=== PATIENT | male | born 1990 | race Hispanic/Latino ===

== ENCOUNTER 2018-07-25 21:21 | Emergency (ER) | payer SELFPAY ==
[~2018-07-25] VITALS: Ht 188 cm; Wt 91.0 kg
[2018-07-25 22:33] LABS: HEMATOCRIT 47.2 % (39.0-50.0); HEMOGLOBIN 16.3 g/dl (14.0-18.0); IMMATURE GRANULOCYTES 0.5 % (0.0-5.0); MEAN CELL VOLUME 88.9 fL CALC (80.0-100.0); MEAN CORPUSCULAR HGB 30.7 pG CALC (26.0-32.0); MEAN CORPUSCULAR HGB CONC 34.5 g/L CALC (32.0-36.0); NEUT# 6.01 thou/uL (1.82-7.42); RED BLOOD COUNT 5.31 mill/uL (4.70-6.10); RED CELL DISTRI WIDTH 12.7 % (11.5-15.5)
[2018-07-25 22:47] LABS: ALBUMIN 4.6 g/dL (3.2-5.0); ALKALINE PHOSPHATASE 61 u/l (38-126); ANION GAP 17 (6-22 (CALC)); BILIRUBIN, TOTAL 0.6 mg/dL (0.0-1.4); BUN 13 mg/dL (9-20); BUN/CREATININE RATIO 13 (12-20 (CALC)); CARBON DIOXIDE 24 mmol/l (22-30); CHLORIDE 106 mmol/l (95-108); CREATININE 0.9 mg/dL (0.7-1.3); GFR > 60 ML/MIN (>=60 (CALC)); GFR FOR AFR.AMER. > 60 ML/MIN (>=60 (CALC)); POTASSIUM 3.9 mmol/l (3.5-5.1); SODIUM 143 mmol/l (137-146); TOTAL PROTEIN 7.8 g/dL (6.3-8.2)
[2018-07-25 22:51] LABS: SGOT/AST 67 u/l (17-59)
[2018-07-26] LABS: URINE BILIRUBIN - DIPSTICK NEGATIVE (NEGATIVE); URINE BLOOD DIPSTICK NEGATIVE (NEGATIVE); URINE COLOR YELLOW; URINE GLUCOSE - DIPSTICK NEGATIVE (NEGATIVE); URINE KETONE TRACE mg/dL (NEGATIVE); URINE LEUK ESTERASE NEGATIVE (NEGATIVE); URINE NITRITE - DIPSTICK NEGATIVE (Negative); URINE PH 5.5 (4.5-8.0); URINE PROTEIN - DIPSTICK NEGATIVE (NEG-TRACE); URINE SPECIFIC GRAVITY >=1.030; URINE UROBILINOGEN - DIPSTICK 0.2 E.U./dL (0.2)
[2018-07-26 00:12] LABS: URINE CLARITY CLEAR
[2018-07-26] MEDS ORDERED: ALPRAZOLAM1 MG PO ×3 (01:16→01:19)
[2018-07-26] MEDS ORDERED: SERTRALINE HCL25 MG PO (01:21)
[2018-07-26] MEDS ORDERED: LEVOTHYROXIN50 MCG PO (01:23)
[2018-07-26] MEDS ORDERED: VALPROIC A250 MG/51 PO (01:23)
[2018-07-26 01:30] VITALS: BP 138/65
== END 2018-07-26 01:30 | DRG 566 ==
LOC: ED 21:21
PROVIDERS: Emergency Medicine
DX: S02.82XA Fracture of other specified skull and facial bones, left side, initial encounter for closed fracture (principal); S01.112A Laceration without foreign body of left eyelid and periocular area, initial encounter; Y00.XXXA Assault by blunt object, initial encounter

== ENCOUNTER 2024-05-12 01:12 | Emergency (ER) | payer SELFPAY ==
[~2024-05-12] VITALS: Ht 188 cm; Wt 98.0 kg
[~2024-05-12 01:12] MED LIST: ALPRAZOLAM1 MG PO; LEVOTHYROXIN50 MCG PO; SERTRALINE HCL25 MG PO; VALPROIC A250 MG/51 PO
[2024-05-12] MEDS ORDERED: DICLOFENAC SODIUM 75 MG/TAB PO ONE (01:30)
[2024-05-12] MEDS ORDERED: ACETAMINOPHEN 500 MG TAB PO ONE (01:30)
[2024-05-12] MEDS ORDERED: VOLTAREN - GENE75 MG PO (02:03)
[2024-05-12 02:19] VITALS: BP 148/97
== END 2024-05-12 02:22 | disposition home or self-care (01) | DRG 605 ==
LOC: ED 01:12
DX: S50.01XA Contusion of right elbow, initial encounter (principal); X58.XXXA Exposure to other specified factors, initial encounter; Y93.66 Activity, soccer

== ENCOUNTER 2024-08-18 19:29 | Emergency (ER) | payer SELFPAY ==
[~2024-08-18] VITALS: Ht 188 cm; Wt 117.9 kg
[~2024-08-18 19:29] MED LIST changes: +VOLTAREN - GENE75 MG PO
[2024-08-18] MEDS ORDERED: BENZONATATE 200 MG/CAP PO ONE (21:20)
[2024-08-18] MEDS ORDERED: IBUPROFEN 800 MG/TAB PO ONE (21:20)
[2024-08-18 22:36] VITALS: BP 131/87
[2024-08-18] MEDS ORDERED: AZITHROMYCIN500 MG PO (23:03)
[2024-08-18] MEDS ORDERED: DECADRON4 MG PO (23:03)
[2024-08-18] MEDS ORDERED: BENZONATATE200 MG PO (23:03)
== END 2024-08-18 23:16 | disposition home or self-care (01) | DRG 195 ==
LOC: ED 19:29
DX: J10.1 Influenza due to other identified influenza virus with other respiratory manifestations (principal); Z20.822 Contact with and (suspected) exposure to COVID-19